=== PATIENT | female | born 1960 | race Caucasian/White ===

== ENCOUNTER → 2017-01-28 | Outpatient (CLI) | payer BC ==
[~2017-01-28] MED LIST: COL250 PO; ESOM20CA PO; LOVA10TA63 PO; LOVA20TA PO; MONT4TAB7 PO; Q VAR IH; ZOLP5TAB PO
--- NOTE | 2017-01-28 15:35 | RADRPT ---
PROCEDURE: XR pelvis/left hip. CLINICAL INDICATION: Hip pain TECHNIQUE: AP pelvis/AP and lateral left hip views performed. COMPARISON: 12/19/2015 FINDINGS: There is a left total hip replacement. There is no evidence of loosening of the prosthesis. No hardw are failure identified. There is mild to moderate right hip osteoarthrosis. This is associated with joint space narrowing, s ubchondral sclerosis and osteophytosis. There is normal osseous mineralization. No fractures or os seous lesions are identified. The soft tissues are unremarkable. IMPRESSION: Left total hip replacement. Mild to moderate right hip osteoarthrosis. RPTAT: [facility] .Chito Medellin MD, MD Date Time Electronically viewed and signed by .Chito Medellin MD, on 01/28/2017 15:35 .B/
--- NOTE | 2017-01-28 15:36 | RADRPT ---
PROCEDURE: XR right knee. CLINICAL INDICATION: Knee pain. TECHNIQUE: AP weightbearing, lateral weightbearing and sunrise views are available for review. COMPARISON: 12/19/2015 FINDINGS: There is a total knee replacement. There is no evidence of loosening of the prosthesis. There is no evidence of hardware failure. The osseous structures are normal in mineralization, architecture and alignment No acute fracture or dislocation is seen.No osseous lesions are identified. The soft tiss ues are unremarkable . IMPRESSION: Unremarkable total knee replacement. RPTAT: [facility] .Chito Medellin MD, MD Date Time Electronically viewed and signed by .Chito Medellin MD, MD on 01/28/2017 15:36 .B/
== END | disposition home or self-care (01) ==
LOC: HKI 14:04
PROVIDERS: ATTEND Orthopaedic Surgery
DX: Z47.89 Encounter for other orthopedic aftercare (principal); Z96.642 Presence of left artificial hip joint; Z96.651 Presence of right artificial knee joint
CPT/HCPCS: 73502; 73562; G0463